=== PATIENT | male | born 1970 | race Caucasian/White ===

== ENCOUNTER 2017-09-24 17:01 | Outpatient (CLI) | payer OTHER | END 2017-09-24 17:02 | disposition critical access hospital (66) | LOC: EMS 17:01 | PROVIDERS: ATTEND Surgery | DX: M25.511 Pain in right shoulder (principal); M54.9 Dorsalgia, unspecified; V18.4XXA Pedal cycle driver injured in noncollision transport accident in traffic accident, initial encounter; Y93.55 Activity, bike riding; Y92.414 Local residential or business street as the place of occurrence of the external cause | CPT/HCPCS: A0425; A0429 ==

== ENCOUNTER 2017-09-24 17:28 | Observation (INO) | payer OTHER ==
[2017-09-24] MEDS ORDERED: KETOROLAC 60 MG/2 ML VIAL IVP STA (17:48)
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
[2017-09-24] MEDS ORDERED: SODIUM CHLORIDE 0.9% 1,000 ML IV ONE (17:55)
[2017-09-24 18:04] LABS: BASOPHILS # (AUTO) 0.1 10^3/uL (0.0-0.1); BASOPHILS % (AUTO) 0.5 %; EOSINOPHILS # (AUTO) 0.1 10^3/uL (0.0-0.7); EOSINOPHILS % (AUTO) 0.7 %; HGB - HEMOGLOBIN 12.7 g/dL (14.0-18.0); LYMPHOCYTES # (AUTO) 1.2 10^3/uL (1.5-3.5); LYMPHOCYTES % (AUTO) 12.2 %; MEAN CORPUSCULAR HEMOGLOBIN 32.6 pg (27.0-31.0); MEAN CORPUSCULAR HGB CONC 34.1 g/dL (32.0-36.0); MEAN CORPUSCULAR VOLUME 95.5 fL (80.0-94.0); MONOCYTES # (AUTO) 0.8 10^3/uL (0.0-1.0); MONOCYTES % (AUTO) 8.5 %; NEUTROPHILS # (AUTO) 7.7 10^3/uL (1.5-6.6); NEUTROPHILS % (AUTO) 78.1 %; PLT - PLATELET COUNT 199 10^3/uL (130-450); RED CELL DISTRIBUTION WIDTH 13.1 % (12.0-15.0); WHITE BLOOD COUNT 9.9 x10^3/uL (4.8-10.8)
[2017-09-24 18:12] LABS: CALCIUM 9.2 mg/dL (8.5-10.3); CREATININE 0.9 mg/dL (0.6-1.2)
[2017-09-24] MEDS ORDERED: IOPAMIDOL-300 100 ML VIAL ONE (18:17)
[2017-09-24] MEDS ORDERED: MORPHINE 2 MG/ML SYRINGE IVP STA (18:43)
[2017-09-24] MEDS ORDERED: ONDANSETRON 4 MG/2 ML VIAL IVP STA (18:43)
[2017-09-24] MEDS ORDERED: IOPAMIDOL-300 100 ML VIAL IVP ONE (18:51)
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
[2017-09-24] MEDS ORDERED: ACETAMINOPHEN 325 MG TABLET PO STA (19:45)
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
[2017-09-24] MEDS ORDERED: HYDROmorphone 0.5 MG/0.5 ML SYRINGE IVP PRN (21:49)
[2017-09-24] MEDS ORDERED: SODIUM CHLORIDE FLUSH 0.9% 10 ML SYRINGE IVP PRN (21:49)
[2017-09-24] MEDS ORDERED: ONDANSETRON 4 MG/2 ML VIAL IVP PRN (21:49)
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
[2017-09-24] MEDS: D5NS W/20 MEQ KCL 1,000 ML IV SCH (22:39)
[2017-09-24] MEDS: oxyCODONE 5 MG TABLET PO PRN (22:49)
[2017-09-25] MEDS: SODIUM CHLORIDE FLUSH 0.9% 10 ML SYRINGE IVP SCH ×2 (00:13→07:51)
[2017-09-25] MEDS: oxyCODONE 5 MG TABLET PO PRN ×3 (03:50→13:25)
[2017-09-25 05:08] LABS: BASOPHILS % (AUTO) 0.5 %; EOSINOPHILS # (AUTO) 0.1 10^3/uL (0.0-0.7); EOSINOPHILS % (AUTO) 1.1 %; HGB - HEMOGLOBIN 11.3 g/dL (14.0-18.0); LYMPHOCYTES # (AUTO) 1.1 10^3/uL (1.5-3.5); LYMPHOCYTES % (AUTO) 18.4 %; MEAN CORPUSCULAR HEMOGLOBIN 32.6 pg (27.0-31.0); MEAN CORPUSCULAR HGB CONC 34.6 g/dL (32.0-36.0); MEAN CORPUSCULAR VOLUME 94.1 fL (80.0-94.0); MEAN PLATELET VOLUME 8.4 fL (7.4-11.4); MONOCYTES # (AUTO) 0.9 10^3/uL (0.0-1.0); MONOCYTES % (AUTO) 14.9 %; NEUTROPHILS % (AUTO) 65.1 %; PLT - PLATELET COUNT 175 10^3/uL (130-450); RED BLOOD COUNT 3.46 10^6/uL (4.70-6.10); WHITE BLOOD COUNT 6.1 x10^3/uL (4.8-10.8)
[2017-09-25 05:29] LABS: ALBUMIN 3.8 g/dL (3.2-5.5); ALBUMIN/GLOBULIN RATIO 1.7 (1.0-2.2); BILIRUBIN,TOTAL 0.9 mg/dL (0.2-1.0); CALCIUM 8.6 mg/dL (8.5-10.3); TOTAL PROTEIN 6.1 g/dL (6.7-8.2)
[2017-09-25] MEDS ORDERED: PANTOPRAZOLE 40 MG TABLET PO SCH (07:00)
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
[2017-09-25] MEDS: D5NS W/20 MEQ KCL 1,000 ML IV SCH (07:51)
[2017-09-25] MEDS ORDERED: POLYETHYLENE GLYCOL 3350 17 GM PACKET PO SCH (09:00)
[2017-09-25] MEDS ORDERED: IBUPROFEN 600 MG TABLET PO SCH (11:00)
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
[2017-09-25 13:32] VITALS: BP 113/66
--- NOTE | 2017-09-25 13:34 | Discharge Plan ---
Discharge Plan Disposition: Home, Self Care Condition: Good Prescriptions: oxyCODONE [Roxicodone] 5 mg PO Q4HR PRN #30 tablet PRN Reason: Pain 5 to 7 Diet: Regular Activity Restrictions: Minimize motion using RIGHT arm until cleared by orthopedics. Shower Restrictions: No Driving Restrictions: Yes (No on opiate pain meds.) Weight Bearing: Full Weight Additional Instructions or Follow Up instructions: Please call my office for a chest Xray order prior to seeing me. No Smoking: If you smoke, Please STOP! Call for help. Follow-up with: Jake Love MD [Primary Care Provider] - Alden Palma MD [Provider Admit Priv/Credential] - Shaun Crawley MD [Provider Admit Priv/Credential] -
== END 2017-09-25 14:12 | disposition home or self-care (01) ==
LOC: EDBD → EDUNIT# → ED 17:28 → OBS 21:49
PROVIDERS: ADMIT Surgery; ATTEND Surgery
DX: S22.41XA Multiple fractures of ribs, right side, initial encounter for closed fracture (principal); S42.031A Displaced fracture of lateral end of right clavicle, initial encounter for closed fracture; S32.051A Stable burst fracture of fifth lumbar vertebra, initial encounter for closed fracture; M25.532 Pain in left wrist; S00.81XA Abrasion of other part of head, initial encounter; V18.0XXA Pedal cycle driver injured in noncollision transport accident in nontraffic accident, initial encounter; S60.512A Abrasion of left hand, initial encounter; S27.321A Contusion of lung, unilateral, initial encounter; Y93.55 Activity, bike riding
CPT/HCPCS: 36415; 70450; 71046; 71260; 72125; 73110; 74177; 80048; 80053; 85025; 96361; 96374; 99217; 99218; 99284; 99285; A9270; Q9967

== ENCOUNTER 2017-10-02 14:27 | Outpatient (CLI) | payer OTHER ==
--- NOTE | 2017-10-02 15:20 | XRAY Report ---
Procedure Date: 10/02/2017 Accession Number: [id number] / [id number] Procedure: XR - Chest 2 View X-Ray CPT Code: 85888 FULL RESULT: EXAM: CHEST RADIOGRAPHY EXAM DATE: 10/02/2017 02:48 PM. CLINICAL HISTORY: Pulmonary contusion. Third rib fracture. COMPARISON: Right clavicle 10/02/2017. Chest 2 view 09/25/2017. TECHNIQUE: 2 views. FINDINGS: Calcific density irregularities projecting over the right lung likely represent the known rib fractures. The known clavicle fracture is again seen. There is no lobar consolidation. There are small bilateral pleural effusions, increased compared to prior. There is no pneumothorax. The mediastinal silhouette is stable. IMPRESSION: Increased small bilateral pleural effusions without lobar consolidation or pneumothorax. Osseous trauma as described. RADIA
== END 2017-10-02 14:28 | disposition home or self-care (01) ==
LOC: DI 14:27
PROVIDERS: ATTEND Surgery
DX: S27.321A Contusion of lung, unilateral, initial encounter (principal); S22.31XA Fracture of one rib, right side, initial encounter for closed fracture; J90 Pleural effusion, not elsewhere classified
CPT/HCPCS: 71046